=== PATIENT | female | born 1970 | race Hispanic/Latino ===

== ENCOUNTER 2017-07-13 16:10 | Inpatient (IN) | payer OTHER ==
[~2017-07-13] VITALS: Ht 152.4 cm; Wt 148.0 kg
[2017-07-13] MEDS ORDERED: FLUOXETINE HCL10 MG PO (16:23)
[2017-07-13] MEDS ORDERED: CYCLOBENZAPRINE5 MG PO (16:23)
[2017-07-13 17:55] LABS: HEMATOCRIT 37.2 % (36.0-46.0); HEMOGLOBIN 12.3 G/DL (11.9-15.5); MCH 25.6 PG (29.0-34.0); MCHC 33.1 G/DL (30.0-36.0); MCV 77.5 FL (83-99); PLATELET COUNT 290 K/uL (156-360); RBC DIS.WIDTH-CV 13.9 % (11.8-14.6); RBC DIS.WIDTH-SD 38.7 % (39-53); WHITE BLOOD COUNT 12.3 K/uL (4.1-10.2)
[2017-07-13 18:06] LABS: CHLORIDE 105 mEq/L (99-109); SODIUM 134 mEq/L (136-147)
[2017-07-13 18:08] LABS: GLUCOSE 214 mg/dL (70-99)
[2017-07-13 18:11] LABS: SERUM ETHYL ALCOHOL < 10 mg/dL
[2017-07-13 18:12] LABS: CREATININE 0.8 mg/dL (0.6-1.3)
[2017-07-13 18:13] LABS: UREA NITROGEN (BUN) 8 mg/dL (9-23)
[2017-07-13 18:15] LABS: ACETAMINOPHEN (TYLENOL) < 10 mcg/mL (10-30); SALICYLATE < 5.0 MG/DL (15-30)
[2017-07-13 18:22] LABS: GFR ESTIMATE (CALCULATED) > 59 mL/min/
[2017-07-13] MEDS ORDERED: FLUOXETINE HCL20 MG PO (20:23)
[2017-07-13] MEDS ORDERED: LEVETIRACETAM500 MG PO (20:24)
[2017-07-13 20:55] VITALS: BP 161/98
[2017-07-13 21:14] VITALS: BP 161/98
[2017-07-14 07:58] VITALS: BP 113/60
[2017-07-14 15:50] VITALS: BP 133/84
[2017-07-15 07:36] VITALS: BP 116/57
[2017-07-15 16:00] VITALS: BP 122/80
[2017-07-16 07:43] VITALS: BP 116/67
[2017-07-16] MEDS ORDERED: EFFEXOR XR75 MG PO (10:33)
[2017-07-16] MEDS ORDERED: ARIPIPRAZOLE5 MG PO (10:33)
== END 2017-07-16 12:42 | disposition home or self-care (01) | DRG 885 ==
LOC: EME 16:10 → EDOF 19:01 → 1WEST 19:01 → ENRESERV 20:37 → 1WEST 20:37
PROVIDERS: Emergency Medicine
DX: F33.2 Major depressive disorder, recurrent severe without psychotic features (principal); R45.851 Suicidal ideations; F60.9 Personality disorder, unspecified; F17.200 Nicotine dependence, unspecified, uncomplicated; F12.90 Cannabis use, unspecified, uncomplicated; W26.0XXA Contact with knife, initial encounter; Z68.30 Body mass index [BMI] 30.0-30.9, adult
CPT/HCPCS: 80048; 85027; 90837; 97150 GO; 97165 GO; 99281; 99285; G0480; Q0177